=== PATIENT | male | born 1955 | race African-American/Black ===

== ENCOUNTER 2019-01-23 21:19 | Emergency (ER) | payer OTHER ==
[2019-01-23] MEDS ORDERED: Metoclopramide HCl 10 MG/2 ML VIAL ONE (22:11)
[2019-01-23] MEDS ORDERED: diphenhydrAMINE 50 MG/ML VIAL ONE (22:11)
--- NOTE | 2019-01-23 22:38 | CT ---
EXAM: CT head without contrast INDICATIONS: Headache COMPARISON: None. FINDINGS: Ventricles have normal size and position. Moderate chronic ischemic white matter change. Bi lateral lucencies seen in both thalami suggest lacunar infarcts, age indeterminate. No hemorrhage or mass effect. No acute cortical infarct apparent. Sinuses and mastoids are clear. 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 Recommend follow-up elective MRI brain to further evaluate the ischemic changes.
[2019-01-23] MEDS ORDERED: Fluorescein Opthalmic Strip ONE (23:11)
[2019-01-23] MEDS ORDERED: Proparacaine 0.5% Opth 15 ML BOT ONE (23:11)
[2019-01-24] MEDS ORDERED: Ketorolac Tromethamine 30 MG/ML VIAL ONE (00:28)
== END 2019-01-24 00:40 ==
LOC: ERS 21:19 → EEVIPCON 21:19 → ERS 01-24 00:40
DX: G43.B0 Ophthalmoplegic migraine, not intractable (principal); E11.9 Type 2 diabetes mellitus without complications; I10 Essential (primary) hypertension; Z79.82 Long term (current) use of aspirin; Z79.899 Other long term (current) drug therapy; Z79.84 Long term (current) use of oral hypoglycemic drugs
CPT/HCPCS: 70450; 96361; 96365; 96375; J1200; J1885; J2765

== ENCOUNTER 2019-12-05 19:32 | Inpatient (IN) | payer OTHER ==
--- NOTE | 2019-12-05 21:17 | RAD ---
CHEST ONE VIEW: 12/05/19 COMPARISON: Radiograph 10/30/13. FINDINGS: Abnormal air space opacities through the lungs. The left hemidiaphragm is elevated. No pneumothorax. No effusion. Heart size is mildly enlarged. IMPRESSION: Faint patchy opacities throughout the lungs may reflect an atypical viral infectious process. POS: HOME
[2019-12-05 21:30] LABS: #Lymphocytes 0.7 thou/uL (1.20-3.40); #Monocytes 0.4 thou/uL (0.11-0.59); #Neutrophils 9.4 thou/uL (1.40-6.50); %Eosinophils 0.1 % (0.0-10.0); %Lymphocytes 6.6 % (21.0-51.0); %Monocytes 3.5 % (0.0-10.0); %Neutrophils 89.8 % (42.0-75.0); Hemoglobin 11.6 g/dL (14.0-18.0); Mean Corpuscular HGB CONC 34.1 g/dL (32.0-36.0); Mean Corpuscular Hemoglobin 28.5 pg (27.0-31.0); Mean Corpuscular Volume 83.5 fL (78.0-98.0); Mean Platelet Volume 10.6 fL (7.4-10.4); Platelet Count 186 thou/uL (130-400); RBC Distribution Width 12.8 % (11.5-14.5); Red Blood Cell (RBC) Count 4.09 mill/uL (4.70-6.10); White Blood Cell (WBC) Count 10.5 thou/uL (4.8-10.8)
[2019-12-05 21:52] LABS: ALT (SGPT) 45 U/L (8-55); AST (SGOT) 52 U/L (5-34); Albumin 3.5 g/dL (3.4-4.8); Alkaline Phosphatase 52 U/L (40-110); Anion Gap 15 mmol/L (10-20); BUN (Urea Nitrogen) 35 mg/dL (8.4-25.7); Bilirubin, Total 0.6 mg/dL (0.2-1.2); Calc. Creatinine Clearance 0 mL/min (70-130); Calcium 8.2 mg/dL (7.8-10.44); Carbon Dioxide 21 mmol/L (23-31); Chloride 104 mmol/L (98-107); Estimated GFR-MDRD 50; Globulin 4.1 g/dL (2.4-3.5); Glucose 121 mg/dL (80-115); Potassium 4.2 mmol/L (3.5-5.1); Protein, Total 7.6 g/dL (5.8-8.1); Sodium 136 mmol/L (136-145)
[2019-12-05] MEDS ORDERED: Azithromycin 500 MG VIAL ONE (22:38)
[2019-12-05] MEDS ORDERED: Acetaminophen 500 MG TAB ONE (22:38)
[2019-12-06 16:22] LABS: SARS-CoV-2 MS2 Positive; SARS-CoV-2 N Gene Positive; SARS-CoV-2 S Gene Positive; SARS-CoV-2 orf1ab Positive
[2019-12-12] MEDS ORDERED: EPINEPHrine 1 MG/ML AMP ONE (21:07)
== END 2019-12-06 02:42 | DRG 195 ==
LOC: ERS 19:32 → EEVIPCON 19:32 → 2SE 20:00 → ERHOLD 21:52
PROVIDERS: ADMIT Internal Medicine; ATTEND Internal Medicine
DX: J18.9 Pneumonia, unspecified organism (principal); R09.02 Hypoxemia; E11.9 Type 2 diabetes mellitus without complications; I10 Essential (primary) hypertension; H81.10 Benign paroxysmal vertigo, unspecified ear; E03.9 Hypothyroidism, unspecified; M19.90 Unspecified osteoarthritis, unspecified site; Z79.4 Long term (current) use of insulin; Z88.5 Allergy status to narcotic agent; Z88.8 Allergy status to other drugs, medicaments and biological substances
CPT/HCPCS: 36415; 71045; 80053; 83605; 85025; 87040; 87635; 96365; J0171; J0456; U0003